=== PATIENT | female | born 1950 | race Caucasian/White ===

== ENCOUNTER 2016-06-25 09:44 | Emergency (ER) | payer OTHER ==
[~2016-06-25] VITALS: Ht 170.2 cm; Wt 108.0 kg
[2016-06-25 09:48] VITALS: BP 150/80
[2016-06-25] MEDS ORDERED: HYDROcodone/APAP 5/325 TABLET PO STA (10:21)
[2016-06-25] MEDS ORDERED: HYDROcodone/APAP 5/325 TABLET ONE (10:34)
[2016-06-25] MEDS ORDERED: HYDR25TA6 PO (10:51)
[2016-06-25] MEDS ORDERED: LEVO200T5 PO (10:51)
== END 2016-06-25 11:15 | disposition home or self-care (01) ==
LOC: ED 10:18
DX: M54.32 Sciatica, left side (principal)
CPT/HCPCS: 99283

== ENCOUNTER 2016-06-28 15:17 | Emergency (ER) | payer MEDICARE, OTHER ==
[~2016-06-28] VITALS: Ht 167.6 cm; Wt 109.9 kg
[~2016-06-28 15:17] MED LIST: HYDR25TA6 PO; LEVO200T5 PO
[2016-06-28 15:19] VITALS: BP 162/84
[2016-06-28] MEDS ORDERED: HYDR-3138 PO (16:02)
[2016-06-28] MEDS ORDERED: PRED20TA PO (16:02)
== END 2016-06-28 16:37 | disposition home or self-care (01) ==
LOC: ED 16:20
DX: M54.16 Radiculopathy, lumbar region (principal); G89.29 Other chronic pain; E11.9 Type 2 diabetes mellitus without complications; M13.862 Other specified arthritis, left knee; Z88.1 Allergy status to other antibiotic agents
CPT/HCPCS: 99283

== ENCOUNTER 2016-07-12 13:53 | Inpatient (IN) | payer MEDICARE, OTHER ==
[~2016-07-12] VITALS: Ht 170.2 cm; Wt 113.2 kg
[~2016-07-12 13:53] MED LIST changes: +HYDR-3138 PO; +PRED20TA PO
[2016-07-12 14:36] LABS: ASPARTATE AMINO TRANSFERASE 84 U/L (15-37); BLOOD UREA NITROGEN 40 mg/dL (7-18)
[2016-07-12] MEDS ORDERED: PANTOPRAZOLE 80 MG in SODIUM CHLORIDE 0.9% 100 ML IV SCH (15:55)
[2016-07-12] MEDS ORDERED: PANTOPRAZOLE 80 MG in SODIUM CHLORIDE 0.9% 50 ML IVPB ONE (15:55)
[2016-07-12] MEDS ORDERED: ASPI-496 PO (15:59)
[2016-07-12] MEDS ORDERED: SODIUM CHLORIDE FLUSH 10ML SYR IVF ONE (16:00)
[2016-07-12] MEDS ORDERED: SODIUM CHLORIDE 0.9% 1,000ML IVBOLUS ONE (16:00)
[2016-07-12] MEDS ORDERED: IBUP200T64 PO (16:20)
[2016-07-12] MEDS ORDERED: POLYETHYLENE GLYCOL 17 GM PACKET PO PRN (17:30)
[2016-07-12] MEDS ORDERED: LABETALOL 5MG/ML, 20ML IVPush PRN (17:30)
[2016-07-12] MEDS ORDERED: ONDANSETRON 2MG/ML, 2ML IVPush PRN (17:30)
[2016-07-12] MEDS ORDERED: ONDANSETRON ODT 4 MG PO PRN (17:30)
[2016-07-12 19:30] VITALS: BP 100/69
[2016-07-12] MEDS: SODIUM CHLORIDE 0.9% 1,000 ML IV SCH (20:16)
[2016-07-12] MEDS: PANTOPRAZOLE 80 MG in SODIUM CHLORIDE 0.9% 100 ML IV SCH (22:00)
[2016-07-12] MEDS: HYDROcodone/APAP 5/325 TABLET PO PRN (23:49)
[2016-07-13 03:51] VITALS: BP 100/68
[2016-07-13] MEDS ORDERED: ARTIFICIAL TEARS OPHTH SOLN 15ML EACHEYE PRN (04:00)
[2016-07-13] MEDS: LEVOTHYROXINE 200 MCG TABLET PO SCH (05:40)
[2016-07-13 05:53] LABS: ASPARTATE AMINO TRANSFERASE 37 U/L (15-37); BLOOD UREA NITROGEN 40 mg/dL (7-18)
[2016-07-13 07:20] VITALS: BP 120/80
[2016-07-13] MEDS: SENNA/DOCUSATE TABLET PO SCH (08:08)
[2016-07-13] MEDS: HYDROcodone/APAP 5/325 TABLET PO SCH (08:08)
[2016-07-13] MEDS: PANTOPRAZOLE 80 MG in SODIUM CHLORIDE 0.9% 100 ML IV SCH ×2 (09:10→21:34)
[2016-07-13] MEDS: SODIUM CHLORIDE 0.9% 1,000 ML IV SCH ×2 (10:53→21:34)
[2016-07-13] MEDS ORDERED: HYDROmorphone 1 MG/ML, 1ML IV PRN (12:30)
[2016-07-13] MEDS ORDERED: FENTANYL PF 100 MCG/2ML IV PRN (12:30)
[2016-07-13] MEDS ORDERED: METOCLOPRAMIDE 5 MG/ML, 2ML IV PRN (12:30)
[2016-07-13] MEDS ORDERED: ONDANSETRON 2MG/ML, 2ML IVPush PRN (12:30)
[2016-07-13] MEDS ORDERED: OXYcodone 5 MG/5 ML ORAL.SOL UDC PO PRN (12:30)
[2016-07-13] MEDS ORDERED: FENTANYL PF 100 MCG/2ML ONE (13:17)
[2016-07-13] MEDS ORDERED: DEXAMETHASONE 4 MG/ML, 1ML ONE (13:21)
[2016-07-13] MEDS ORDERED: SUCCINYLCHOLINE 20 MG/ML, 10ML ONE (13:21)
[2016-07-13] MEDS ORDERED: ESMOLOL 100 MG/10 ML ONE (13:21)
[2016-07-13] MEDS ORDERED: ONDANSETRON 2MG/ML, 2ML ONE (13:21)
[2016-07-13] MEDS ORDERED: PROPOFOL 10 MG/ML, 20ML ONE (13:21)
[2016-07-13] MEDS ORDERED: EPINEPHRINE SYRINGE 0.1 MG/ML, 10ML ONE (13:58)
[2016-07-13 15:15] VITALS: BP 118/67
[2016-07-13] MEDS: HYDROcodone/APAP 5/325 TABLET PO PRN (15:28)
[2016-07-13 15:30] VITALS: BP 118/67
[2016-07-13 21:37] VITALS: BP 124/74
[2016-07-14 02:01] VITALS: BP 120/54
[2016-07-14 05:58] LABS: BLOOD UREA NITROGEN 22 mg/dL (7-18)
[2016-07-14] MEDS: LEVOTHYROXINE 200 MCG TABLET PO SCH (06:07)
[2016-07-14] MEDS: HYDROcodone/APAP 5/325 TABLET PO SCH (07:48)
[2016-07-14] MEDS: SENNA/DOCUSATE TABLET PO SCH ×2 (07:53→13:11)
[2016-07-14] MEDS: PANTOPRAZOLE 80 MG in SODIUM CHLORIDE 0.9% 100 ML IV SCH (07:53)
[2016-07-14 08:02] VITALS: BP 107/53
[2016-07-14] MEDS: SODIUM CHLORIDE 0.9% 1,000 ML IV SCH ×2 (13:11→22:57)
[2016-07-14 14:30] VITALS: BP 101/67
[2016-07-14] MEDS: OMEPRAZOLE 20 MG CAPSULE.DR PO SCH (19:36)
[2016-07-14 21:40] VITALS: BP 110/70
[2016-07-15 01:51] VITALS: BP 108/69
[2016-07-15 05:16] LABS: ASPARTATE AMINO TRANSFERASE 44 U/L (15-37); BLOOD UREA NITROGEN 13 mg/dL (7-18)
[2016-07-15] MEDS: LEVOTHYROXINE 200 MCG TABLET PO SCH (06:17)
[2016-07-15] MEDS: SODIUM CHLORIDE 0.9% 1,000 ML IV SCH (06:29)
[2016-07-15 07:06] VITALS: BP 116/77
[2016-07-15] MEDS: OMEPRAZOLE 20 MG CAPSULE.DR PO SCH (07:50)
[2016-07-15] MEDS: SENNA/DOCUSATE TABLET PO SCH (07:51)
[2016-07-15] MEDS: HYDROcodone/APAP 5/325 TABLET PO SCH (07:51)
[2016-07-15] MEDS ORDERED: HYDROCHLOROTHIAZIDE 25 MG TABLET PO SCH (09:00)
[2016-07-15] MEDS ORDERED: OMEP-110 PO (13:09)
== END 2016-07-15 15:42 | disposition home or self-care (01) | DRG 377 ==
LOC: OR 16:44 → EDIP 17:04 → 3NE 18:30 → DCLOUNGE 07-15 15:30
PROVIDERS: ADMIT Hospitalist; ATTEND Hospitalist
PROC: 0W3P8ZZ Control Bleeding in Gastrointestinal Tract, Via Natural or Artificial Opening Endoscopic (ICD-10-PCS; 2016-07-13)
PROC: 3E0G8GC Introduction of Other Therapeutic Substance into Upper GI, Via Natural or Artificial Opening Endoscopic (ICD-10-PCS; principal; 2016-07-13 13:45)
DX: K26.4 Chronic or unspecified duodenal ulcer with hemorrhage (principal); E43 Unspecified severe protein-calorie malnutrition; I10 Essential (primary) hypertension; D64.9 Anemia, unspecified; D72.829 Elevated white blood cell count, unspecified; E03.9 Hypothyroidism, unspecified; E11.65 Type 2 diabetes mellitus with hyperglycemia; G89.29 Other chronic pain; M19.90 Unspecified osteoarthritis, unspecified site; K21.0 Gastro-esophageal reflux disease with esophagitis; K25.9 Gastric ulcer, unspecified as acute or chronic, without hemorrhage or perforation; M54.30 Sciatica, unspecified side; Z79.899 Other long term (current) drug therapy; Z80.3 Family history of malignant neoplasm of breast; Z82.3 Family history of stroke; Z88.1 Allergy status to other antibiotic agents; Z68.39 Body mass index [BMI] 39.0-39.9, adult; K29.60 Other gastritis without bleeding
CPT/HCPCS: 36415; 80048; 80053; 80061; 82040; 83690; 83735; 84439; 84443; 85014; 85018; 85025; 85610; 86677; 87338; 93005; 96365; 96366; J1100; J2405; J2704; J3010; C9113; J0330; J7030

== ENCOUNTER → 2017-06-08 | Outpatient (CLI) | payer OTHER ==
[~2017-06-08] MED LIST changes: +ASPI-496 PO; -HYDR-3138 PO; +HYDR-3237 PO; +IBUP200T64 PO; +OMEP-110 PO
== END ==
LOC: RAD 12:42
PROVIDERS: ATTEND Nurse Practitioner Family
DX: I70.0 Atherosclerosis of aorta (principal); R91.8 Other nonspecific abnormal finding of lung field; M85.80 Other specified disorders of bone density and structure, unspecified site; D18.09 Hemangioma of other sites
CPT/HCPCS: 71250

== ENCOUNTER → 2017-09-15 | Outpatient (CLI) | payer OTHER | END | disposition home or self-care (01) | LOC: CFH 08:34 | PROVIDERS: ATTEND Internal Medicine Critical Care Medicine | DX: R05 Cough (principal) | CPT/HCPCS: 70486 ==

== ENCOUNTER 2018-05-14 18:29 | Emergency (ER) | payer SELFPAY ==
[~2018-05-14] VITALS: Ht 170.2 cm; Wt 106.2 kg
--- NOTE | 2018-05-14 18:40 | NUR ---
NO ANSWER FROM TRIAGE
[2018-05-14] MEDS ORDERED: OXYMETAZOLINE NASAL SPRAY 0.05%, 15ML NAS ONE (19:30)
[2018-05-14] MEDS ORDERED: PHENYLEPHRINE NASAL 1%, 30ML DROPS NAS ONE (19:30)
[2018-05-14 19:31] LABS: BASOPHILS # (AUTO) 0.03 x10^3/uL (0-0.1); BASOPHILS % (AUTO) 0 % (0-1); EOSINOPHILS % (AUTO) 2 % (1-7); LYMPHOCYTES # (AUTO) 2.53 x10^3/uL (1-3.4); LYMPHOCYTES % (AUTO) 31 % (22-44); MD NO; MEAN CORPUSCULAR HEMOGLOBIN 27.9 pg (27.0-34.8); MEAN CORPUSCULAR VOLUME 84.5 fL (80-100); MEAN PLATELET VOLUME 8.5 fL (7.4-10.4); MONOCYTES # (AUTO) 0.53 x10^3/uL (0.2-0.8); MONOCYTES % (AUTO) 6 % (2-9); NEUTROPHILS # (AUTO) 4.98 x10^3/uL (1.8-6.8); NEUTROPHILS % (AUTO) 60 % (42-75); PLATELET COUNT 285 x10^3/uL (130-400); RED BLOOD COUNT 4.69 x10^6/uL (3.82-5.3); RED CELL DISTRIBUTION WIDTH 15.4 % (9.6-15.2)
[2018-05-14 19:41] LABS: ALBUMIN 3.9 g/dL (3.4-5.0); ANION GAP 4 mmol/L (5-15); CALCIUM 9.4 mg/dL (8.5-10.1); CHLORIDE 106 mmol/L (98-107); CREATININE 0.69 mg/dL (0.55-1.02)
[2018-05-14 19:42] LABS: INTERNATIONAL NORMALIZED RATIO 0.98 (0.93-1.1); PROTHROMBIN TIME 10.3 Seconds (9.6-11.5)
[2018-05-14] MEDS ORDERED: BACITRACIN ZINC OINT 500U/GM, 0.9 GM ONE (20:58)
[2018-05-14 21:00] VITALS: BP 120/81
== END 2018-05-14 21:05 | disposition home or self-care (01) ==
LOC: ED 20:14
DX: R04.0 Epistaxis (principal); I10 Essential (primary) hypertension; E11.9 Type 2 diabetes mellitus without complications; M19.90 Unspecified osteoarthritis, unspecified site; G89.29 Other chronic pain; Z88.0 Allergy status to penicillin
CPT/HCPCS: 36415; 80048; 82040; 85025; 85610; 85730; 99283

== ENCOUNTER 2019-05-18 10:54 | Emergency (ER) | payer OTHER ==
[~2019-05-18] VITALS: Ht 167.6 cm; Wt 98.0 kg
[2019-05-18 14:24] LABS: INTERNATIONAL NORMALIZED RATIO 1.01 (0.93-1.1); PROTHROMBIN TIME 10.7 Seconds (9.6-11.5)
[2019-05-18 14:26] LABS: ALBUMIN 3.6 g/dL (3.4-5.0); ANION GAP 7 mmol/L (5-15); CALCIUM 8.7 mg/dL (8.5-10.1); CHLORIDE 105 mmol/L (98-107)
[2019-05-18 14:39] LABS: BASOPHILS # (AUTO) 0.08 x10^3/uL (0-0.1); BASOPHILS % (AUTO) 1 % (0-1); EOSINOPHILS # (AUTO) 0.13 x10^3/uL (0-0.4); EOSINOPHILS % (AUTO) 2 % (1-7); LYMPHOCYTES % (AUTO) 31 % (22-44); MD NO; MEAN CORPUSCULAR HEMOGLOBIN 27.8 pg (27.0-34.8); MEAN CORPUSCULAR HGB CONC 32.5 g/dL (32.4-35.8); MEAN CORPUSCULAR VOLUME 85.5 fL (80-100); MEAN PLATELET VOLUME 9.1 fL (7.4-10.4); MONOCYTES # (AUTO) 0.55 x10^3/uL (0.2-0.8); MONOCYTES % (AUTO) 7 % (2-9); NEUTROPHILS # (AUTO) 4.42 x10^3/uL (1.8-6.8); NEUTROPHILS % (AUTO) 59 % (42-75); PLATELET COUNT 226 x10^3/uL (130-400); RED BLOOD COUNT 4.95 x10^6/uL (3.82-5.3); RED CELL DISTRIBUTION WIDTH 14.7 % (9.6-15.2)
[2019-05-18 15:38] VITALS: BP 120/88
--- NOTE | 2019-05-18 16:07 | NUR ---
Patient/Caregiver given discharge instructions and they have confirmed that they understand the instructions. Patient ambulatory with steady gait.
== END 2019-05-18 16:08 | disposition home or self-care (01) ==
LOC: ED 13:23
DX: K92.1 Melena (principal); I10 Essential (primary) hypertension; E11.9 Type 2 diabetes mellitus without complications
CPT/HCPCS: 36415; 80048; 82040; 85025; 85610; 85730; 99283